=== PATIENT | male | born 1985 | race Caucasian/White ===

== ENCOUNTER 2018-08-01 16:08 | Emergency (ER) | payer OTHER, MEDICAID ==
[2018-08-01] MEDS: predniSONE 20 MG TAB PO (17:40)
[2018-08-01] MEDS: CEPHALEXIN 500 MG CAP PO (17:40)
== END 2018-08-01 17:55 | disposition home or self-care (01) ==
LOC: E/R 16:08
DX: L03.113 Cellulitis of right upper limb (principal); I10 Essential (primary) hypertension
CPT/HCPCS: 99283; J7512

== ENCOUNTER 2019-04-25 13:05 | Emergency (ER) | payer OTHER ==
[2019-04-25] MEDS: KETOROLAC 60 MG INJ IM (13:44)
== END 2019-04-25 15:26 | disposition home or self-care (01) ==
LOC: FTE 13:05
DX: R07.81 Pleurodynia (principal); I10 Essential (primary) hypertension
CPT/HCPCS: 71045; 93005; 96372; 99284-25